=== PATIENT | female | born 1985 ===

== ENCOUNTER → 2017-12-12 | Day surgery (SDC) | payer MEDICAID ==
[~2017-12-12] MED LIST: Cyclobenzaprine 10 MG Tab PO PRN; Dexamethasone 4 MG/ML 5 ML MDV ONE; HYDROmorphone 0.5 MG/0.5 ML Syringe IVPUSH PRN; HYDROmorphone 1 MG/ML Syringe IVPUSH ONE; HYDROmorphone 1 MG/ML Syringe ONE; Ketamine 500 mg/10 ML MDV ONE; Ketorolac 30 MG/ML SDV IVPUSH PRN; Ketorolac 30 MG/ML SDV ONE; Lactated Ringers 1,000 ML ONE; Lidocaine 1% 4 ML ONE; Meperidine PF 50 MG/ML Syringe IVPUSH PRN; Midazolam 1 MG/ML 2 ML SDV ONE; Morphine 15 MG Tab.ER PO SCH; Ondansetron 4 MG/2 ML SDV IVPUSH ONE; Ondansetron 4 MG/2 ML SDV IVPUSH PRN; Ondansetron 4 MG/2 ML SDV ONE; Propofol 200 MG/20 ML SDV ONE; Rocuronium 50 MG/5 ML Vial ONE; Scopolamine 1 MG Transdermal Patch TRDERM ONE; Sodium Chloride 0.9% 1,000 ML IV SCH; ceFAZolin 1 GM Vial ONE; diphenhydrAMINE 50 MG/ML SDV IVPUSH PRN; fentaNYL 100 MCG/2 ML SDV IVPUSH PRN; fentaNYL 100 MCG/2 ML SDV ONE; fentaNYL 250 MCG/5 ML SDV ONE
--- NOTE | 2017-12-12 03:34 | EDM.PDOC ---
ED HPI GENERAL MEDICAL PROBLEM - General Chief Complaint: Lower Extremity Injury/Pain Stated Complaint: POSSIBLE BROKEN ANKLE Time Seen by Provider: 12/12/17 03:06 Source of Information: Reports: Patient History Limitations: Reports: No Limitations - History of Present Illness INITIAL COMMENTS - FREE TEXT/NARRATIVE: This is a 32-year-old female. She slipped on some ice approximately 2 AM and twisted her right ankle and fell. She states she felt a crunch and pain in her right ankle. Since that time it has swelled markedly and she comes to the ER for evaluation. She denies any right knee hip pain she denies any right lower extremity or upper extremity injuries. She did not hit her head there was no loss of consciousness. Her only complaint is her right ankle. She last ate and drank around midnight. She takes no medications. She denies any medical problems. She is a nurse for [employer]. Right Ankle Pain Score (Numeric/FACES): 10 - Related Data Allergies Allergy/AdvReac Type Severity Reaction Status Date / Time No Known Allergies Allergy Verified 12/12/17 06:32 Home Meds: Home Meds . [No Known Home Meds] 12/12/17 [History] Past Medical History Psychiatric History: Reports: PTSD Social & Family History - Family History Cardiac: Reports: CAD - Tobacco Use Smoking Status *Q: Never Smoker Second Hand Smoke Exposure: No - Caffeine Use Caffeine Use: Reports: Coffee, Soda - Recreational Drug Use Recreational Drug Use: No Review of Systems - Review of Systems Review Of Systems: See Below Constitutional: Denies: Chills, Fever Eyes: Reports: No Symptoms Ears: Reports: No Symptoms Nose: Reports: No Symptoms Mouth/Throat: Reports: No Symptoms Respiratory: Reports: No Symptoms Cardiovascular: Reports: No Symptoms GI/Abdominal: Reports: No Symptoms Genitourinary: Reports: No Symptoms Musculoskeletal: Reports: Other (As per history of present illness) Skin: Reports: Other (As per history of present illness) Neurological: Reports: No Symptoms Psychiatric: Reports: Other (PTSD) ED EXAM, GENERAL - Physical Exam Exam: See Below Exam Limited By: No Limitations General Appearance: Alert, WD/WN, Moderate Distress Eye Exam: Bilateral Eye: Normal Inspection Ears: Normal External Exam Nose: Normal Inspection Throat/Mouth: Normal Inspection, Normal Lips, Normal Voice, No Airway Compromise Head: Normocephalic Neck: Supple Respiratory/Chest: No Respiratory Distress, Lungs Clear, Normal Breath Sounds Cardiovascular: Regular Rate, Rhythm, No Murmur Peripheral Pulses: 2+: Posterior Tibial (R), 3+: Dorsalis Pedis (R) GI/Abdominal: Soft Back Exam: Full Range of Motion Extremities: Other (Right ankle she has marked swelling on the lateral malleolus as well as the medial malleolus, the ankle itself looks like it slightly posteriorly displaced, she has a 2+ pedal pulse and a 1+ posterior tibial pulse, neurovascular is intact in all 5 digits as far as touch, she has no lower leg or knee pain on palpation, the foot itself does not appear to be traumatized just the ankle) Neurological: Alert, Oriented Psychiatric: Anxious Skin Exam: Warm, Dry, Other (Her pants however her wet) ED TRAUMA EXTREMITY PROCEDURES - Splinting Right Lower Extremity Progress/Comments: Due to the trimalleolar fracture I placed a Prescott splint which consist of lots of cotton padding over the fracture site with a posterior Ortho-Glass splint as well as a stirrup splint around the right ankle with Miguel wraps to hold the padding and the splints in place. Prior to the procedure she had neurovascular intact in all of her digits of her right foot and after the splinting she had sensation in all of her digits in her right foot and capillary refill for each toe was less than 2 seconds. Course - Vital Signs Last Recorded V/S: Last Vital Signs Temp 98.1 F 12/12/17 17:55 Pulse 93 12/12/17 16:52 Resp 18 12/12/17 17:55 BP 113/71 12/12/17 17:55 Pulse Ox 95 12/12/17 17:55 - Orders/Labs/Meds Orders: Active Orders 24 hr Category Date Time Status Patient Status [ADT] Routine ADT 12/12/17 08:59 Active Bedrest [RC] ASDIRECTED Care 12/12/17 06:30 Active Communication Order [RC] ASDIRECTED Care 12/12/17 13:43 Active Communication Order [RC] ROUTINE Care 12/12/17 15:48 Active Cooling Warming Measures [RC] ASDIRECTED Care 12/12/17 15:48 Active Elevate Extremity [RC] 09,21 Care 12/12/17 06:33 Active Elevate Extremity [RC] CONTINUOUS Care 12/12/17 13:43 Active Head of Bed Elevation [RC] ASDIRECTED Care 12/12/17 13:43 Active Notify Provider [RC] ASDIRECTED Care 12/12/17 15:48 Active Oxygen Therapy [RC] ASDIRECTED Care 12/12/17 15:48 Active Pulse Oximetry [RC] ASDIRECTED Care 12/12/17 15:48 Active Ready for Discharge [RC] PER UNIT ROUTINE Care 12/12/17 13:45 Active Turn, Cough, Deep Breathe [RC] .PRN Care 12/12/17 13:43 Active Vital Signs [RC] PER UNIT ROUTINE Care 12/12/17 13:43 Active Vital Signs [RC] Q15M Care 12/12/17 15:48 Active NPO Now [Nothing per Oral Now Diet] [DIET] Diet 12/12/17 Breakfast Active Ankle Min 3V Rt [CR] Stat Exams 12/12/17 03:08 Taken Fluoro Up To 1Hr [CR] Routine Exams 12/12/17 11:00 Taken HCG QUALITATIVE,URINE [URCHEM] Stat Lab 12/12/17 13:55 Uncollected Acetaminophen/oxyCODONE [Percocet 325-5 MG] Med 12/12/17 13:43 Active 1 - 2 tab PO Q4H PRN Cyclobenzaprine [Flexeril] Med 12/12/17 13:43 Active 10 - 20 mg PO Q8H PRN HYDROmorphone [Dilaudid] Med 12/12/17 15:49 Active 0.5 mg IVPUSH Q15M PRN HYDROmorphone [Dilaudid] Med 12/12/17 06:32 Active 0.5 mg IVPUSH Q2H PRN Ketorolac [Toradol] Med 12/12/17 13:43 Active 30 mg IVPUSH Q6H PRN Meperidine [Demerol] Med 12/12/17 15:49 Active 12.5 mg IVPUSH ONETIME PRN Morphine [MS Contin] Med 12/12/17 13:45 Active 15 mg PO ONETIME Ondansetron [Zofran] Med 12/12/17 15:49 Active 4 mg IVPUSH ONETIME PRN Ondansetron [Zofran] Med 12/12/17 13:43 Active 4 mg IVPUSH Q4H PRN Sodium Chloride 0.9% [Normal Saline] 1,000 ml Med 12/12/17 06:45 Active IV ASDIRECTED diphenhydrAMINE [Benadryl] Med 12/12/17 15:49 Active 25 mg IVPUSH Q6H PRN fentaNYL [Sublimaze] Med 12/12/17 15:49 Active 50 mcg IVPUSH Q5M PRN Ice Therapy [OM.PC] Routine Oth 12/12/17 13:43 Ordered Schedule Procedure [COMM] Routine Oth 12/12/17 13:00 Ordered Code Status [Resuscitation Status] Routine Resus Stat 12/12/17 06:29 Ordered Medication Orders Cyclobenzaprine HCl (Flexeril) 10 - 20 mg PO Q8H PRN PRN Reason: Muscle Spasm Diphenhydramine HCl (Benadryl) 25 mg IVPUSH Q6H PRN PRN Reason: Pruritis Fentanyl (Sublimaze) 50 mcg IVPUSH Q5M PRN PRN Reason: Pain Hydromorphone HCl (Dilaudid) 0.5 mg IVPUSH Q2H PRN PRN Reason: Pain Last Admin: 12/12/17 09:39 Dose: 0.5 mg Admin: 12/12/17 06:45 Dose: 0.5 mg Hydromorphone HCl (Dilaudid) 0.5 mg IVPUSH Q15M PRN PRN Reason: Pain (severe 7-10) Sodium Chloride (Normal Saline) 1,000 mls @ 100 mls/hr IV ASDIRECTED [facility] Ketorolac Tromethamine (Toradol) 30 mg IVPUSH Q6H PRN PRN Reason: Pain (severe 7-10) Meperidine HCl (Demerol) 12.5 mg IVPUSH ONETIME PRN PRN Reason: Shivering Morphine Sulfate (Ms Contin) 15 mg PO ONETIME RAZIA Ondansetron HCl (Zofran) 4 mg IVPUSH Q4H PRN PRN Reason: Nausea/Vomiting Ondansetron HCl (Zofran) 4 mg IVPUSH ONETIME PRN PRN Reason: Nausea/Vomiting Oxycodone/Acetaminophen (Percocet 325-5 Mg) 1 - 2 tab PO Q4H PRN PRN Reason: Pain (severe 7-10) Labs: Laboratory Tests 12/12/17 12/12/17 12/12/17 Range/Units 04:00 04:00 05:30 WBC 7.30 (3.98-10.04) K/mm3 RBC 4.98 (3.98-5.22) M/mm3 Hgb 13.3 (11.2-15.7) gm/L Hct 40.7 (34.1-44.9) % MCV 81.7 (79.4-94.8) fl MCH 26.7 (25.6-32.2) pg MCHC 32.7 (32.2-35.5) g/dl RDW Std Deviation 38.4 (36.4-46.3) fL Plt Count 343 (182-369) K/mm3 MPV 10.8 (9.4-12.3) fl Neut % (Auto) 59.7 (34.0-71.1) % Lymph % (Auto) 36.2 (19.3-51.7) % Latimer % (Auto) 3.0 L (4.7-12.5) % Eos % (Auto) 0.4 L (0.7-5.8) Baso % (Auto) 0.4 (0.1-1.2) % Neut # (Auto) 4.36 (1.56-6.13) K/mm3 Lymph # (Auto) 2.64 (1.18-3.74) K/mm3 Latimer # (Auto) 0.22 L (0.24-0.36) K/mm3 Eos # (Auto) 0.03 L (0.04-0.36) K/mm3 Baso # (Auto) 0.03 (0.01-0.08) K/mm3 Sodium 143 (136-145) mEq/L Potassium 3.8 (3.5-5.1) mEq/L Chloride 107 (98-107) mEq/L Carbon Dioxide 23 (21-32) mEq/L Anion Gap 16.8 H (5-15) BUN 6 L (7-18) mg/dL Creatinine 0.8 (0.55-1.02) mg/dL Est Cr Clr Drug Dosing 79.85 mL/min Estimated GFR (MDRD) > 60 (>60) mL/min BUN/Creatinine Ratio 7.5 L (14-18) Glucose 117 H (74-106) mg/dL Calcium 8.6 (8.5-10.1) mg/dL Total Bilirubin 0.1 L (0.2-1.0) mg/dL AST 34 (15-37) U/L ALT 46 (14-59) U/L Alkaline Phosphatase 79 (46-116) U/L Total Protein 9.3 H (6.4-8.2) g/dl Albumin 4.5 (3.4-5.0) g/dl Globulin 4.8 gm/dL Albumin/Globulin Ratio 0.9 L (1-2) MRSA (PCR) Negative Meds: Medications Generic Name Dose Route Start Last Admin Trade Name Freq PRN Reason Stop Dose Admin Cyclobenzaprine HCl 10 - 20 mg 12/12/17 13:43 Flexeril PO Q8H PRN Muscle Spasm Diphenhydramine HCl 25 mg 12/12/17 15:49 Benadryl IVPUSH Q6H PRN Pruritis Fentanyl 50 mcg 12/12/17 15:49 Sublimaze IVPUSH Q5M PRN Pain Hydromorphone HCl 0.5 mg 12/12/17 06:32 12/12/17 09:39 Dilaudid IVPUSH 0.5 mg Q2H PRN Administration Pain Hydromorphone HCl 0.5 mg 12/12/17 15:49 Dilaudid IVPUSH Q15M PRN Pain (severe 7-10) Sodium Chloride 1,000 mls @ 100 mls/hr 12/12/17 06:45 Normal Saline IV ASDIRECTED [facility] Ketorolac Tromethamine 30 mg 12/12/17 13:43 Toradol IVPUSH Q6H PRN Pain (severe 7-10) Meperidine HCl 12.5 mg 12/12/17 15:49 Demerol IVPUSH ONETIME PRN Shivering Morphine Sulfate 15 mg 12/12/17 13:45 Ms Contin PO ONETIME RAZIA Ondansetron HCl 4 mg 12/12/17 13:43 Zofran IVPUSH Q4H PRN Nausea/Vomiting Ondansetron HCl 4 mg 12/12/17 15:49 Zofran IVPUSH ONETIME PRN Nausea/Vomiting Oxycodone/Acetaminophen 1 - 2 tab 12/12/17 13:43 Percocet 325-5 Mg PO Q4H PRN Pain (severe 7-10) Discontinued Medications Generic Name Dose Route Start Last Admin Trade Name Jessica PRN Reason Stop Dose Admin Bupivacaine HCl Confirm 12/12/17 13:43 12/12/17 16:17 Marcaine 0.5% Administered 12/12/17 13:44 25 ml Dose Administration 30 ml .ROUTE .STK-MED ONE Cefazolin Sodium Confirm 12/12/17 13:35 Ancef Administered 12/12/17 13:36 Dose 2 gm .ROUTE .STK-MED ONE Dexamethasone Confirm 12/12/17 13:32 Dexamethasone Administered 12/12/17 13:33 Dose 20 mg .ROUTE .STK-MED ONE Fentanyl Confirm 12/12/17 13:31 Sublimaze Administered 12/12/17 13:32 Dose 250 mcg .ROUTE .STK-MED ONE Fentanyl Confirm 12/12/17 13:40 Sublimaze Administered 12/12/17 13:41 Dose 100 mcg .ROUTE .STK-MED ONE Fentanyl Confirm 12/12/17 16:30 Sublimaze Administered 12/12/17 16:31 Dose 100 mcg .ROUTE .STK-MED ONE Hydromorphone HCl 0.5 mg 12/12/17 03:59 12/12/17 04:09 Dilaudid IVPUSH 12/12/17 04:00 0.5 mg ONETIME ONE Administration Hydromorphone HCl Confirm 12/12/17 14:47 Dilaudid Administered 12/12/17 14:48 Dose 1 mg .ROUTE .STK-MED ONE Sodium Chloride 1,000 mls @ 250 mls/hr 12/12/17 04:00 12/12/17 04:08 Normal Saline IV 250 mls/hr ASDIRECTED RAZIA Administration Lidocaine HCl Confirm 12/12/17 13:32 Xylocaine-Mpf 1% Administered 12/12/17 13:33 Dose 4 mls @ as directed .ROUTE .STK-MED ONE Lactated Ringer's Confirm 12/12/17 15:12 Ringers, Lactated Administered 12/12/17 15:13 Dose 1,000 mls @ as directed .ROUTE .STK-MED ONE Iodine Confirm 12/12/17 13:43 12/12/17 15:10 Iodine 2% Mild Tincture Administered 12/12/17 13:44 3 ml Dose Administration 30 ml .ROUTE .STK-MED ONE Ketamine HCl Confirm 12/12/17 13:31 Ketalar Administered 12/12/17 13:32 Dose 500 mg .ROUTE .STK-MED ONE Ketorolac Tromethamine Confirm 12/12/17 16:19 Toradol Administered 12/12/17 16:20 Dose 30 mg .ROUTE .STK-MED ONE Ketorolac Tromethamine Confirm 12/12/17 16:19 Toradol Administered 12/12/17 16:20 Dose 30 mg .ROUTE .STK-MED ONE Midazolam HCl Confirm 12/12/17 13:31 Versed 1 Mg/Ml Administered 12/12/17 13:32 Dose 2 mg .ROUTE .STK-MED ONE Ondansetron HCl 4 mg 12/12/17 03:59 12/12/17 04:08 Zofran IVPUSH 12/12/17 04:00 4 mg ONETIME ONE Administration Ondansetron HCl 4 mg 12/12/17 06:31 12/12/17 08:01 Zofran IVPUSH 4 mg Q6HR PRN Administration Nausea Ondansetron HCl Confirm 12/12/17 13:32 Zofran Administered 12/12/17 13:33 Dose 4 mg .ROUTE .STK-MED ONE Propofol Confirm 12/12/17 13:31 Diprivan 20 Ml Administered 12/12/17 13:32 Dose 200 mg .ROUTE .STK-MED ONE Rocuronium [place] Confirm 12/12/17 13:32 Zemuron Administered 12/12/17 13:33 Dose 50 mg .ROUTE .STK-MED ONE Scopolamine 1 each 12/12/17 07:21 12/12/17 08:01 Scopolamine TRDERM 12/12/17 07:22 1 each ONETIME ONE Administration - Radiology Interpretation Free Text/Narrative:: Right ankle x-ray shows a trimalleolar fracture with a widened mortise and a slightly posteriorly displaced talus though it is not dislocated - Re-Assessments/Exams Free Text/Narrative Re-Assessment/Exam: 12/12/17 03:35 I spoke to the patient and the mother regarding the x-ray findings. 12/12/17 03:[address] Jama and he would like to have her stay in the ER or possibly observation until he can get to do her surgery after his other 2 ankles that he has to repair this morning. We will make her comfortable and put her in a splint and water here in the ER or observation for pain control. She does have a 16-year-old at home that can help her as well as her mother can help her. Departure - Departure Time of Disposition: 04:00 Disposition: Admitted As Inpatient 66 Condition: Fair Clinical Impression: Closed trimalleolar fracture Closed displaced trimalleolar fracture of right ankle Qualifiers: Encounter type: initial encounter Qualified Code(s): S82.851A - Displaced trimalleolar fracture of right lower leg, initial encounter for closed fracture - Discharge Information - My Orders Last 24 Hours: My Active Orders 12/12/17 03:08 Ankle Min 3V Rt [CR] Stat - Assessment/Plan Last 24 Hours: My Active Orders 12/12/17 03:08 Ankle Min 3V Rt [CR] Stat
[2017-12-12] MEDS: HYDROmorphone 0.5 MG/0.5 ML Syringe IVPUSH PRN ×3 (06:45→21:47)
--- NOTE | 2017-12-12 07:18 | PCM.PREANE ---
Preanesthetic Assessment - Anesthesia/Transfusion/Family Hx Anesthesia History: Prior Anesthesia Reaction Type of Anesthesia Reaction: Excessive Nausea/Vomiting Family History of Anesthesia Reaction: No Transfusion History: No Prior Transfusion(s) - Review of Systems General: No Symptoms Pulmonary: No Symptoms Cardiovascular: No Symptoms Gastrointestinal: No Symptoms Neurological: No Symptoms Other: Reports: None - Physical Assessment NPO Status Date: 12/11/17 NPO Status Time: 23:00 Pulse: 97 O2 Sat by Pulse Oximetry: 100 Respiratory Rate: 20 Blood Pressure: 121/75 Temperature: 37.7 C Vital Signs: Last Vital Signs Temp 37.7 C 12/12/17 05:15 Pulse 97 12/12/17 05:16 Resp 20 12/12/17 03:05 BP 121/75 12/12/17 05:16 Pulse Ox 100 12/12/17 05:16 Height: 1.57 m Weight: 83.915 kg ASA Class: 1E Mental Status: Alert & Oriented x3 Airway Class: Mallampati = 2 Dentition: Reports: Normal Dentition Thyro-Mental Finger Breadths: 3 Mouth Opening Finger Breadths: 3 ROM/Head Extension: Full Lungs: Clear to Auscultation, Normal Respiratory Effort Cardiovascular: Regular Rate, Regular Rhythm - Lab Values: Laboratory Last Values WBC 7.30 K/mm3 (3.98-10.04) 12/12/17 04:00 RBC 4.98 M/mm3 (3.98-5.22) 12/12/17 04:00 Hgb 13.3 gm/L (11.2-15.7) 12/12/17 04:00 Hct 40.7 % (34.1-44.9) 12/12/17 04:00 MCV 81.7 fl (79.4-94.8) 12/12/17 04:00 MCH 26.7 pg (25.6-32.2) 12/12/17 04:00 MCHC 32.7 g/dl (32.2-35.5) 12/12/17 04:00 RDW Std Deviation 38.4 fL (36.4-46.3) 12/12/17 04:00 Plt Count 343 K/mm3 (182-369) 12/12/17 04:00 MPV 10.8 fl (9.4-12.3) 12/12/17 04:00 Neut % (Auto) 59.7 % (34.0-71.1) 12/12/17 04:00 Lymph % (Auto) 36.2 % (19.3-51.7) 12/12/17 04:00 Garza % (Auto) 3.0 % (4.7-12.5) L 12/12/17 04:00 Eos % (Auto) 0.4 (0.7-5.8) L 12/12/17 04:00 Baso % (Auto) 0.4 % (0.1-1.2) 12/12/17 04:00 Neut # (Auto) 4.36 K/mm3 (1.56-6.13) 12/12/17 04:00 Lymph # (Auto) 2.64 K/mm3 (1.18-3.74) 12/12/17 04:00 Garza # (Auto) 0.22 K/mm3 (0.24-0.36) L 12/12/17 04:00 Eos # (Auto) 0.03 K/mm3 (0.04-0.36) L 12/12/17 04:00 Baso # (Auto) 0.03 K/mm3 (0.01-0.08) 12/12/17 04:00 Sodium 143 mEq/L (136-145) 12/12/17 04:00 Potassium 3.8 mEq/L (3.5-5.1) 12/12/17 04:00 Chloride 107 mEq/L (98-107) 12/12/17 04:00 Carbon Dioxide 23 mEq/L (21-32) 12/12/17 04:00 Anion Gap 16.8 (5-15) H 12/12/17 04:00 BUN 6 mg/dL (7-18) L 12/12/17 04:00 Creatinine 0.8 mg/dL (0.55-1.02) 12/12/17 04:00 Est Cr Clr Drug Dosing 79.85 mL/min 12/12/17 04:00 Estimated GFR (MDRD) > 60 mL/min (>60) 12/12/17 04:00 BUN/Creatinine Ratio 7.5 (14-18) L 12/12/17 04:00 Glucose 117 mg/dL (74-106) H 12/12/17 04:00 Calcium 8.6 mg/dL (8.5-10.1) 12/12/17 04:00 Total Bilirubin 0.1 mg/dL (0.2-1.0) L 12/12/17 04:00 AST 34 U/L (15-37) 12/12/17 04:00 ALT 46 U/L (14-59) 12/12/17 04:00 Alkaline Phosphatase 79 U/L (46-116) 12/12/17 04:00 Total Protein 9.3 g/dl (6.4-8.2) H 12/12/17 04:00 Albumin 4.5 g/dl (3.4-5.0) 12/12/17 04:00 Globulin 4.8 gm/dL 12/12/17 04:00 Albumin/Globulin Ratio 0.9 (1-2) L 12/12/17 04:00 - Allergies Allergies/Adverse Reactions: Allergies Allergy/AdvReac Type Severity Reaction Status Date / Time No Known Allergies Allergy Verified 12/12/17 06:32 - Blood Blood Available: No Product(s) Available: None - Anesthesia Plan Pre-Op Medication Ordered: None - Acknowledgements Anesthesia Type Planned: General Anesthesia (scope patch, possible TIVA) Pt an Appropriate Candidate for the Planned Anesthesia: Yes Alternatives and Risks of Anesthesia Discussed w Pt/Guardian: Yes Pt/Guardian Understands and Agrees with Anesthesia Plan: Yes PreAnesthesia Questionnaire Psychiatric History: Reports: PTSD - SUBSTANCE USE Smoking Status *Q: Never Smoker Second Hand Smoke Exposure: No Recreational Drug Use History: No - HOME MEDS Home Medications: Home Meds . [No Known Home Meds] 12/12/17 [History] - CURRENT (IN HOUSE) MEDS Current Meds: Current Medications Hydromorphone HCl (Dilaudid) 0.5 mg IVPUSH Q2H PRN PRN Reason: Pain Last Admin: 12/12/17 06:45 Dose: 0.5 mg Sodium Chloride (Normal Saline) 1,000 mls @ 100 mls/hr IV ASDIRECTED RAZIA Ondansetron HCl (Zofran) 4 mg IVPUSH Q6HR PRN PRN Reason: Nausea Discontinued Medications Hydromorphone HCl (Dilaudid) 0.5 mg IVPUSH ONETIME ONE Stop: 12/12/17 04:00 Last Admin: 12/12/17 04:09 Dose: 0.5 mg Sodium Chloride (Normal Saline) 1,000 mls @ 250 mls/hr IV ASDIRECTED RAZIA Last Admin: 12/12/17 04:08 Dose: 250 mls/hr Ondansetron HCl (Zofran) 4 mg IVPUSH ONETIME ONE Stop: 12/12/17 04:00 Last Admin: 12/12/17 04:08 Dose: 4 mg
--- NOTE | 2017-12-12 11:49 | HP ---
DATE OF ADMISSION: 12/12/2017 HISTORY OF PRESENT ILLNESS: This is the first orthopedic outpatient admission for surgery for this 32-year- old female, who is being brought in for a surgical repair of a displaced fractures of the right ankle. The patient has suffered the injury secondary to fall on the ice early in the morning on 12/12/2017, presented to the emergency room, evaluated, x-rays were taken, placed in a splint, and referred to Orthopedics for possible surgical treatment of the fracture. The fracture was evaluated with the x-rays. Displaced fracture showed an unstable fracture, and she is now being scheduled for outpatient surgical open reduction and internal fixation of the right ankle fracture. Procedure has been outlined to her. She understands the risks and complications involved with that. ALLERGIES: No known drug allergies. CURRENT MEDICATIONS: Currently only oxycodone for pain control. PAST SURGICAL HISTORY: The patient has had previous surgery. No anesthesia complications were noted. PAST MEDICAL HISTORY: Has been a healthy 32-year-old female. The patient has had no specific medical problems. Denies any diabetes or high blood pressure type problems. The patient denies any bleeding history or blood clot history or smoking history. SOCIAL HISTORY: She is a nonsmoker and rarely alcohol use. PHYSICAL EXAMINATION: VITAL SIGNS: Today reveals a well-developed, well-nourished 32-year-old female in [id number] distress. HEAD, EYES, EARS, NOSE, AND THROAT: Normocephalic. NECK: Supple. CHEST: Clear. COR: Regular rate. ABDOMEN: Soft. : Intact. EXTREMITIES: Examination of the right ankle reveals severe pain to pressure palpation over the right ankle on both the inside and outside portion of the ankle. SKIN: Intact. Does show hematoma and ecchymosis formation. The patient has good circulation to her toes. RADIOLOGY DATA: - x-ray showed a bimalleolar fracture to the right ankle with displaced fractures. PLAN: Plan will be for the patient to be stabilized, undergo a surgical open reduction and internal fixation of the right ankle fracture on outpatient basis. MMEVELYNE /[id number]
[2017-12-12] MEDS: Iodine/Sodium Iodide 2% Tincture 30 ML Bottle ONE ×2 (15:09→15:10)
[2017-12-12] MEDS: Bupivacaine 0.5% 30 ML SDV ONE ×2 (15:10→16:17)
--- NOTE | 2017-12-12 15:49 | CONS ---
CONSULTING PHYSICIAN: Alonzo Jama MD DATE OF CONSULTATION: 12/12/2017 Emergency Room Consultation HISTORY OF PRESENT ILLNESS: This is 32-year-old female who presented to the emergency room early in the morning on 12/12/2017, suffering a fall on ice with injury to her right ankle. The patient was brought in, had severe pain, and was evaluated through the emergency room physicians and had x-rays taken, was found to have a fracture of the right ankle. An Orthopedic consultation was called for. Of note, the patient notes no other injuries other than the right ankle pain and right ankle pain is very severe. PHYSICAL EXAMINATION: MUSCULOSKELETAL: Examination of the right ankle reveals a severe pain to direct pressure and palpation over both the medial and lateral malleolus areas. Positive swelling noted. Slight hematoma, ecchymosis formation noted. She has good circulation to her toes. RADIOLOGY: X-rays were reviewed which shows displaced bimalleolar fractures of the right ankle. PLAN: The patient is to undergo surgical open reduction and internal fixation of the fracture of right ankle. Procedure has been outlined to her along with the postoperative recovery phase. She understands that and has consented to surgery. BRENDAN /[id number]
--- NOTE | 2017-12-12 16:52 | PCM.POSTAN ---
POST ANESTHESIA ASSESSMENT - MENTAL STATUS Mental Status: Alert, Oriented - VITAL SIGNS Pulse Rate: 93 SaO2: 100 Resp Rate: 14 Blood Pressure: 107/61 Temperature: 36.9 C - RESPIRATORY Respiratory Status: Respiratory Rate WNL, Airway Patent, O2 Saturation Stable, Supplemental Oxygen - CARDIOVASCULAR CV Status: Pulse Rate WNL, Blood Pressure Stable - GASTROINTESTINAL GI Status: No Symptoms - PAIN Pain Score: 0 - POST OP HYDRATION Hydration Status: Adequate & Stable
[2017-12-13] MEDS: Acetaminophen/oxyCODONE 325-5 MG Tab PO PRN ×2 (05:39→12:38)
--- NOTE | 2017-12-13 08:58 | CR ---
Right ankle: Four views of the right ankle were obtained. Comparison: No previous ankle study. Fractures are identified within the medial malleolus and within the lateral malleolus showing mild displacement. Soft tissue swelling is noted. Small avulsion fracture also noted off the lateral distal tibia. Impression: 1. Mildly displaced fractures as noted above with soft tissue swelling. Diagnostic code #3
--- NOTE | 2017-12-13 08:58 | CR ---
Right ankle: Seven fluoroscopic spot views are obtained utilizing C-arm device. Comparison: Previous ankle study of 12/12/17 (performed earlier on the same day). Bimalleolar fractures are seen. Short intramedullary chelly identified affixing a lateral malleolus fracture. Two cannulated screws affix the medial malleolus fracture. Skin zack are present. Final film shows ankle mortise to appear symmetric. Fluoroscopy time not given at time of dictation. Impression: 1. Reduction and fixation of previous bimalleolar fractures. Diagnostic code #2
--- NOTE | 2017-12-13 12:57 | PCM48HPAN ---
Post Anesthesia Note - EVALUATION WITHIN 48HRS OF ANESTHETIC Vital Signs in Normal Range: Yes Patient Participated in Evaluation: Yes Respiratory Function Stable: Yes Airway Patent: Yes Cardiovascular Function Stable: Yes Hydration Status Stable: Yes Pain Control Satisfactory: Yes Nausea and Vomiting Control Satisfactory: Yes Mental Status Recovered: Yes
--- NOTE | 2017-12-14 08:15 | OR ---
DATE OF OPERATION: 12/12/2017 SURGEON: Alonzo Jama MD PREOPERATIVE DIAGNOSIS: Bimalleolar fracture of the right ankle with displacement. POSTOPERATIVE DIAGNOSIS: Bimalleolar fracture of the right ankle with displacement. ANESTHESIA: General. OPERATION PERFORMED: 1. Open reduction and internal fixation of lateral malleolus with Wesley chelly. 2. Open reduction and internal fixation of the medial malleolus with cannulated screws. 3. Application of short-leg cast bivalved. DESCRIPTION OF PROCEDURE: The patient was taken to the operating room in supine position, placed under general anesthesia. After adequate anesthesia, the right leg was prepped and draped by standard technique for approach to the right ankle. After prepping and draping, the right ankle was first exposed, then operation proceeded on the lateral side, fracture of the lateral malleolus. An incision was placed over the distal fibula area with a hockey-stick curved anteriorly. Penetration was made through the skin and sharp dissection was carried right down to the fibular bone starting about 2 cm above the end of the fracture. Once the bone was exposed, the fracture hematoma was removed, the soft tissues were reflected away out of the fracture itself, which was oblique. The fibular fracture was then reduced and held in place and then a Wesley chelly was then inserted in a retrograde fashion up into the proximal fibula crossing the fracture line and this was checked under fluoroscopy. #1 Vicryl was used for a double cerclage support of the fracture area against the Wesley chelly to prevent any movement. Once that was completed, the bone reduction clamp was removed. The site of fracture was then inspected and the ankle was moved in flexion extension. No movement was noted. The area of the diastasis was identified possibly and a towel clip was then used on the malleolus and the proximal fibula and we used fluoroscopy. In a Mortise view, the fibula was then stressed, no movement was noted. There was no movement at the fibular joint. Operation then proceeded to the closure of the deep tissues, it may be noted that prior to the reduction of the fibula during the course of the debridement, proximal fibula was also checked for any type of diastasis with solid with the stressing. Operation went to the closure with the deep tissues being closed with #1 Vicryl, subcutaneous tissue with 2-0 Vicryl and skin with skin zack. Thorough irrigation was used all through the wound area. Operation then proceeded to the medial side where the medial malleolus fracture site was identified. This was a straight horizontal fracture. The operation proceeded with a curvilinear incision being placed over the medial malleolus with penetration made through the skin and subcutaneous tissues. The saphenous vein was identified and isolated laterally exposing the fracture. Periosteum was then incised and then the fracture was opened. The fracture hematoma was then removed. Cleansing of the joint was then carried out and once that was satisfied, any type of bony fragments were removed. The operation proceeded with reduction of the medial malleolar fracture. A cannulated screws were then used, 2 Steinmann pins were then placed across the fracture site with fluoroscopy to identify guidance and position and once that was satisfied, 2 cannulated screws were then inserted fixating the medial malleolus solidly with no movement on stress. Operation then proceeded with final irrigation of the wound area and then the deep tissues were closed with #1 Vicryl, subcu tissues with 2-0 Vicryl and skin with skin zack. Findings at completion of procedure, hardcopy x-rays were taken just to satisfy the possibility of a diastasis. The ankle mortise was stressed in inversion and eversion, to see whether or not there would be a talar shift or movement of the fibula in the mortise region. This was found to be solid and satisfied. Operation then proceeded with standard dressings being applied. Short-leg cast that was bivalved. The patient tolerated this whole procedure well and left the operating room in stable condition to room for recovery. ESTIMATED BLOOD LOSS: MMODAL /[id number]
== END | disposition home or self-care (01) ==
LOC: JD.ED 03:02 → JD.MS 04:35 → UNDOADMIN 04:35 → JD.SDS 09:04
PROVIDERS: ATTEND Specialist
DX: S82.841A Displaced bimalleolar fracture of right lower leg, initial encounter for closed fracture (principal); W00.0XXA Fall on same level due to ice and snow, initial encounter
CPT/HCPCS: 27814; 36415; 73610; 76000; 80053; 85025; 87641; 96361; 96374; 96375; 99285; A9270; J0690; J1100; J1170; J1885; J2250; J2405; J3010; J7040; J7120; 01480; 29515; 99283; C1713; C1769; J2001; J2704